=== PATIENT | male | born 1970 | race Caucasian/White ===

== ENCOUNTER → 2017-03-23 | Outpatient (CLI) | payer OTHER, BC, MEDICAID | LOC: EEVIPCON 13:54 → FIMAGING 13:54 | PROVIDERS: ATTEND Physician Assistant Medical | DX: N32.3 Diverticulum of bladder (principal) ==

== ENCOUNTER 2018-02-01 07:40 | Day surgery (SDC) | payer OTHER, BC, MEDICAID ==
--- NOTE | 2018-01-31 16:48 | GHP ---
[f rep st] PREOP HISTORY AND PHYSICAL HISTORY OF PRESENT ILLNESS: This is a gentleman who has had a recent urinary tract infection with se psis. He also has Pelizaeus-Merzbacher disease, and he was recently at [facility] for urosepsis seen by Dr. Nichole and it was recommended that he have a cystoscopy and catheter change under anest hesia and IV antibiotics because of his urosepsis and so he is admitted as an outpatient for further that. He has had urinary incontinence and on UTI suppression in the past and doing well. When we baig d seen him in the office last January 31, 2017, he had been on methenamine and he had had intermittent catheter changes. PAST MEDICAL HISTORY: Bladder diverticulum, incontinence, his metabolic congenital disease and bladd er dysfunction. PAST SURGICAL HISTORY: Hip and back surgery. MEDICATIONS: Acetaminophen, antibiotics, methenamine. ALLERGIES: None. FAMILY HISTORY: Positive for heart disease, diabetes, kidney disease, hypertension, prostate cancer. SOCIAL HISTORY: Nonsmoker, nondrinker. REVIEW OF SYSTEMS: Denies fever or chills since hospitalization. Has no headaches. There are no pulm onary issues, is without shortness of breath. PHYSICAL EXAMINATION: GENERAL: This gentleman is wheelchair bound. He is unable to communicate with any examiner. EYES: Conjunctiva and eyelids are normal. LUNGS: Respiratory effort normal. ABDOMEN : Obesity. EXTREMITIES: Lower extremities are present. PLAN: At the present time, he is admitted for cystoscopy, catheter change and possible dilation of t he urethra. /[id number]/MODL
--- NOTE | 2018-02-01 07:38 | PDHPUP ---
History & Physical Update H&P update statement: This history and physical update is based on an assessment of the patient which was completed after admission or registration (within 24 hours), but prior to the surgery/procedure. H&P update: H&P reviewed & patient examined, no change in patient's condition since H&P completed
[~2018-02-01 07:40] MED LIST: CLINDAMYCIN 900 MG/DEXTROSE 50 ML IV ONE
[2018-02-01] MEDS ORDERED: LR 1,000 ML IV ONE (08:20)
[2018-02-01] MEDS ORDERED: LIDOCAINE 1% 2 ML INJ ID PRN (08:20)
[2018-02-01 08:49] VITALS: PULSE 98
--- NOTE | 2018-02-01 10:12 | PDANEPAE ---
ANE History of Present Illness stent exchange and ureteral structure laser ANE Past Medical History - Cardiovascular History Hx Hypertension: No Hx Arrhythmias: No Hx Chest Pain: No Hx Coronary Artery / Peripheral Vascular Disease: No Hx CHF / Valvular Disease: No Hx Palpitations: No - Pulmonary History Hx COPD: No Hx Asthma/Reactive Airway Disease: No Hx Recent Upper Respiratory Infection: No Hx Oxygen in Use at Home: No Hx Sleep Apnea: No Sleep Apnea Screening Result - Last Documented: Negative Pulmonary History Comment: influenza b - Neurologic History Hx Cerebrovascular Accident: No Hx Seizures: No Hx Dementia: No - Endocrine History Hx Diabetes: No - Renal History Hx Renal Disorders: No Renal History Comment: pt is incontinent of bowel and bladder - Liver History Hx Hepatic Disorders: No - Neurological & Psychiatric Hx Hx Neurological and Psychiatric Disorders: Yes Neurological / Psychiatric History Comment: leukodystrophy - Cancer History Hx Cancer: No - Congenital Disorder History Hx Congenital Disorders: Yes Congenital History Comment: pelizaeus merzbacher - GI History Hx Gastrointestinal Disorders: No - Other Health History Other Health History: pelizaeus merzbacher disease - Chronic Pain History Chronic Pain: No - Surgical History Prior Surgeries: analgesic with dentist last mnth. broken femur 2016 ANE Review of Systems Review of systems is: negative Review of Systems: - Exercise capacity Exercise capacity: limited by disability METS (RN): 1 METS ANE Patient History - Allergies Allergies/Adverse Reactions: No Known Allergies Allergy (Verified 01/31/18 18:06) - Home Medications Home Medications: Cipro 01/31/18 [Last Taken 01/31/18] Herbals/Supplements -Info Only 01/31/18 [Last Taken 01/31/18] Methenamine Mandelate 01/31/18 [Last Taken 01/31/18] Miralax 17 gm (*) 02/01/18 [Last Taken 01/31/18] - NPO status NPO Status: no food or drink >8 hours NPO Since - Liquids (Date): 01/31/18 NPO Since - Liquids (Time): 20:00 NPO Since - Solids (Date): 01/31/18 NPO Since - Solids (Time): 20:00 - Anes Hx Anes Hx: no prior problems - Smoking Hx Smoking Status: Never smoked - Alcohol Use Alcohol Use: None - Family Anes Hx Family Anes Hx: none Family Hx Anesthesia Complications: none ANE Labs/Vital Signs - Vital Signs Vital Signs: reviewed preoperatively; see RN documention for details Blood Pressure: 122/83 Heart Rate: 98 Respiratory Rate: 16 O2 Sat (%): 95 Height: 152.4 cm Weight: 35.153 kg ANE Physical Exam - Airway Mallampati Score: Class 2 Mouth exam: poor dentition - Pulmonary Pulmonary: no respiratory distress - Cardiovascular Cardiovascular: regular rate and rhythym - ASA Status ASA Status: III ANE Anesthesia Plan Anesthesia Plan: general endotracheal anesthesia
[2018-02-01] MEDS ORDERED: fentaNYL 100 MCG/2 ML INJ ONE (10:22)
[2018-02-01] MEDS ORDERED: PROPOFOL 200 MG/20 ML VIAL ONE (11:02)
[2018-02-01] MEDS ORDERED: LIDOCAINE 2% 5 ML SDV ONE (11:02)
[2018-02-01] MEDS ORDERED: ONDANSETRON 4 MG/2 ML VIAL ONE (11:33)
[2018-02-01] MEDS ORDERED: SUGAMMADEX SODIUM 200 MG/2 ML VIAL IVP ONE (11:33)
[2018-02-01] MEDS ORDERED: ONDANSETRON 4 MG/2 ML VIAL IVP PRN (11:50)
[2018-02-01] MEDS ORDERED: NALOXONE HCL 0.4 MG/ML INJ IVP PRN (11:50)
[2018-02-01] MEDS ORDERED: ALBUTEROL 3 ML DEYVIAL IH PRN (11:50)
[2018-02-01] MEDS ORDERED: ACETAMINOPHEN 500 MG TAB PO PRN (11:50)
--- NOTE | 2018-02-01 11:52 | POSTANESTH ---
Post Anesthetic Evaluation Cardiovascular Status: Normal, Stable Respiratory Status: Normal, Stable Level of Consciousness/Mental Status: Can Participate in Eval Pain Control: Adequate, Prn Tx Ordered Nausea/Vomiting Control: Adequate, Prn Tx Ordered Complications Possibly Related to Anesthesia: None Noted
--- NOTE | 2018-02-01 12:06 | GOP ---
[f rep st] OPERATIVE REPORT DATE OF OPERATION: 02/01/2018 SURGEON: Flakito Ortiz MD PREOPERATIVE DIAGNOSIS: Neurogenic bladder, urethral stricture. POSTOPERATIVE DIAGNOSIS: Neurogenic bladder, urethral stricture with urethral false passage. PROCEDURE PERFORMED: FINDINGS: DESCRIPTION OF PROCEDURE: This gentleman underwent anesthesia, was prepped and draped in the normal sterile fashion in a supine position. The flexible scope was passed and he had a false passage scarr ing of his urethra that could easily accommodate the scope. Prostate was normal. Bladder had no sto helga, tumors, or diverticula. At that point, I was able to pass a guidewire into the bladder and then passed an 18-[place] tip catheter over the wire into the bladder well. At the present time, I will write orders that they try to change his catheter monthly by inserting a guidewire in the mary ann ter and then remove the catheter and replace it the new catheter with a [place] tip catheter. Discus sed the findings with his father. No complications, no specimen and tolerated the procedure well. /[id number]/MODL
--- NOTE | 2018-02-01 12:07 | POSTOPPROG ---
Post Op Note Date of Operation: 02/01/18 Surgeon: Flakito Ortiz Anesthesia: IV Sedation Pre-op Diagnosis: neurogenic bladder Post-op Diagnosis: neurogenic bladder Procedure: cysto complex catheterizatin Inf/Abcess present in the surg proc area at time of surgery?: No EBL: Minimal Drains: Other (wainwright cath)
[2018-02-01 13:00] VITALS: RESP 18
[2018-02-01 13:29] VITALS: TEMP 98.6
[2018-02-01 13:31] VITALS: BP 107/79; O2SAT 92
== END 2018-02-01 14:05 | disposition home or self-care (01) ==
LOC: FSGY 07:40
PROVIDERS: ATTEND Specialist
PROC: 0TJB8ZZ Inspection of Bladder, Via Natural or Artificial Opening Endoscopic (ICD-10-PCS; principal; 2018-02-01 08:45)
PROC: 0T9B70Z Drainage of Bladder with Drainage Device, Via Natural or Artificial Opening (ICD-10-PCS; principal; 2018-02-01 08:45)
DX: N31.9 Neuromuscular dysfunction of bladder, unspecified (principal); N35.9 Urethral stricture, unspecified; N36.5 Urethral false passage; N32.3 Diverticulum of bladder; R32 Unspecified urinary incontinence; R33.9 Retention of urine, unspecified; E75.29 Other sphingolipidosis; Z87.440 Personal history of urinary (tract) infections; Z86.19 Personal history of other infectious and parasitic diseases; Z82.49 Family history of ischemic heart disease and other diseases of the circulatory system; Z80.42 Family history of malignant neoplasm of prostate; Z83.3 Family history of diabetes mellitus
CPT/HCPCS: 52000; C1769; J2405; J2704; J3010

== ENCOUNTER 2018-07-26 11:01 | Emergency (ER) | payer OTHER, BC, MEDICAID ==
--- NOTE | 2018-07-26 12:08 | EDPHY ---
H & P Stated Complaint: WHEELCHAIR TIPPED OVER/NO COMPLAINTS Time Seen by Provider: 07/26/18 11:42 HPI/ROS: CHIEF COMPLAINT: Possible left arm injury HISTORY OF PRESENT ILLNESS: 47-year-old nonverbal wheelchair-bound male in the ER with father who provides history. Father states that as the van was taking the patient to a day program the straps were in adequately tightened and the wheelchair leaned onto his left side. However did not tip over. A straps may have placed temporary pressure on the left humerus and shoulder. The staff recommend he come to the ER for x-ray of left shoulder and arm. No head trauma. no direct contact with any part of the vehicle. REVIEW OF SYSTEMS: 10 systems reviewed and negative with the exception of the elements mentioned in the history of present illness PAST MEDICAL/SURGICAL HISTORY: Wheelchair-bound. PELIZAEUS-MERZBACHER DISEASE SOCIAL HISTORY: Lives with father. PHYSICAL EXAM 1) GENERAL: chronic contracture, nonverbal 2) HEAD: Atraumatic 3) HEENT: Pupils equal, round, reactive to light bilaterally. Negative Horners. Nasopharynx, oropharynx, clear. No deformity or angulation of nose. No septal hematoma. No rhinorrhea. No oral trauma. Ears bilaterally with normal tympanic membranes. No hemotympanum. No fluid or blood in the external auditory canal. No raccoon eyes. No Rascon sign.. 4) NECK: No cervical collar is on. Posterior cervical spine is nontender, no stepoff, no effusion. Full range of motion which does not elicit any midline cervical spine pain, no posterior midline tenderness, no step-off. 5) LUNGS: Clear to auscultation bilaterally, no wheezes, no rhonchi, no retractions. No obvious signs of trauma. No chest wall pain. No flaring, no grunting. Moving symmetrically. No crepitus. 6) HEART: [Regular rate and rhythm, 7) ABDOMEN: No guarding, no rebound, no focal tenderness, no peritoneal signs, no signs of trauma, no ecchymosis 8) MUSCULOSKELETAL: No signs of trauma. Palpation of the left clavicle, shoulder, humerus elicits no apparent pain, wincing or retraction from patient. No erythema. No signs of trauma. Otherwise, no focal areas of tenderness, no obvious trauma. Lower extremities show no signs of trauma no areas of tenderness. 9) BACK: No visual or palpable abnormality. 10) SKIN: No laceration. No abrasion DIFFERENTIAL DIAGNOSIS: In no particular order including but not limited to fracture, sprain, strain, dislocation, normal exam - Personal History Current Tetanus Diphtheria and Acellular Pertussis (TDAP): Yes - Medical/Surgical History Hx Asthma: No Hx Chronic Respiratory Disease: No Hx Diabetes: No Hx Cardiac Disease: No Hx Renal Disease: No Hx Cirrhosis: No Hx Alcoholism: No Hx HIV/AIDS: No Hx Splenectomy or Spleen Trauma: No Other PMH: PELIZAEUS-MERZBACHER DISEASE - Social History Smoking Status: Never smoked Constitutional: Initial Vital Signs Temperature (C) 36.6 C 07/26/18 11:06 Heart Rate 90 07/26/18 11:06 Respiratory Rate 17 07/26/18 11:06 Blood Pressure 111/83 H 07/26/18 11:06 O2 Sat (%) 95 07/26/18 11:06 O2 Delivery Mode Room Air Allergies/Adverse Reactions: No Known Allergies Allergy (Verified 07/26/18 11:02) Home Medications: Medication Instructions Recorded Herbals/Supplements -Info Only 01/31/18 Methenamine Mandelate 01/31/18 Miralax 17 gm (*) 02/01/18 Medical Decision Making - Diagnostics Imaging Results: Imaging Impressions Humerus X-Ray 07/26/18 12:22 Impression: Negative. No acute fracture. Shoulder X-Ray 07/26/18 12:22 Impression: Negative. No acute fracture or dislocation. Images reviewed myself ED Course/Re-evaluation: 12:01 p.m.: Patient's father is concerned about possible left arm injury although the patient has no visible signs of trauma and does not retract or wince with palpation this area. Will obtain x-rays. He has soft compartments. I visualize no signs of trauma or injury on exam. 1:14 p.m.: Re-evaluation, discussed with father negative x-rays. No pain areas of discomfort or signs of trauma on exam. Plan will be discharge home with father who will take patient home. Recommended father that if he notices any change in the patient's mentation or abnormal symptoms to return to the ER. Father feels comfortable being discharged. I saw this patient independently based on established practice protocols. Care of patient under supervision of secondary supervising physician Dr Currie . Departure - Departure Disposition: Home, Routine, Self-Care Clinical Impression: Fall involving wheelchair Qualifiers: Encounter type: initial encounter Qualified Code(s): W05.0XXA - Fall from non- moving wheelchair, initial encounter Condition: Good Instructions: Wheel Chair Transfers (ED), How to Transfer a Person Safely (DC) Additional Instructions: If you notice any change or abnormality with [place] please seek immediate medical attention Referrals: Bing Donaldson MD [Primary Care Provider] - 1-2 days without fail
[2018-07-26 12:55] VITALS: BP 124/100
== END 2018-07-26 13:32 | disposition home or self-care (01) ==
DX: S49.92XA Unspecified injury of left shoulder and upper arm, initial encounter (principal); W05.0XXA Fall from non-moving wheelchair, initial encounter